=== PATIENT | female | born 1985 | race Caucasian/White ===

== ENCOUNTER 2018-07-09 11:58 | Emergency (ER) | payer OTHER ==
[2018-07-09] MEDS ORDERED: LIDOCAINE 5% (700 MG) TRANSDERMAL ADH..PATCH TP ONE (12:21)
[2018-07-09] MEDS ORDERED: IBUPROFEN 800 MG TABLET PO ONE (12:21)
--- NOTE | 2018-07-09 12:25 | ER Document Report ---
HPI - HPI Patient complains to provider of: Right upper back pain Time Seen by Provider: 07/09/18 12:08 Onset: Yesterday Onset/Duration: Gradual Quality of pain: Achy Pain Level: 4 Context: Patient presents complaining of right upper back pain that started yesterday. Patient states pain is worse with deep breath and coughing. Patient states movement of the right upper extremity also worsens her pain. Patient does acknowledge that she uses a heavy backpack and carries heavy loads while at work but denies any specific injury. Patient denies any fever nausea or vomiting or shortness of breath. Patient denies any recent travel or immobilization or surgeries. Patient denies any history of DVT or PE in the past. Associated Symptoms: Other - Right upper back pain. denies: Nonproductive cough , Productive cough Exacerbated by: Movement, Coughing, Deep breathing Relieved by: Remaining still Similar symptoms previously: No Recently seen / treated by doctor: No - ROS ROS below otherwise negative: Yes Systems Reviewed and Negative: Yes All other systems reviewed and negative - CONSTITUTIONAL Constitutional: DENIES: Fever, Chills - NEURO Neurology: DENIES: Headache, Weakness - RESPIRATORY Respiratory: REPORTS: Coughing. DENIES: Trouble Breathing - GASTROINTESTINAL Gastrointestinal: DENIES: Nausea, Patient vomiting - MUSCULOSKELETAL Musculoskeletal: REPORTS: Back Pain. DENIES: Extremity pain, Neck Pain - DERM Skin Color: Ashen Skin Problems: None Past Medical History - General Information source: Patient - Social History Smoking Status: Never Smoker Frequency of alcohol use: Occasional Drug Abuse: None Occupation: Teacher Lives with: Spouse/Significant other Family History: Reviewed & Not Pertinent - Medical History Medical History: Negative Past Surgical History: Reports: Other - Varicose vein Vertical Provider Document - CONSTITUTIONAL Agree With Documented VS: Yes Exam Limitations: No Limitations General Appearance: WD/WN, No Apparent Distress - INFECTION CONTROL TRAVEL OUTSIDE OF THE [place] IN LAST 30 DAYS: No - HEENT HEENT: Atraumatic, Normal ENT Exam, Normocephalic - NECK Neck: Normal Inspection, Supple. negative: Lymphadenopathy-Left, Lymphadenopathy-Right - RESPIRATORY Respiratory: Breath Sounds Normal, No Respiratory Distress. negative: Rales, Rhonchi, Wheezing - CARDIOVASCULAR Cardiovascular: Regular Rate, Regular Rhythm, No Murmur - BACK Back: Abnormal Inspection - Right upper thoracic back tenderness, pain is reproduced with deep inspiration. negative: CVA Tenderness-Right, CVA Tenderness-Left - MUSCULOSKELETAL/EXTREMETIES Musculoskeletal/Extremeties: MAEW, FROM, No Edema. negative: Edema - NEURO Level of Consciousness: Awake, Alert, Appropriate Motor/Sensory: No Motor Deficit - DERM Integumentary: Warm, Dry, No Rash Course - Re-evaluation Re-evalutation: 07/09/18 12:24 Patient presents with likely musculoskeletal thoracic back pain. Patient states that she had a friend whose mother of a pulmonary embolism after complaints of back pain. Patient is very concerned that she may have a blood clot. Patient denies any recent immobilization, long distance travel or surgeries. No previous history of DVT, no edema to lower extremities. Patient does not smoke or use oral contraceptives. Patient is not tachycardic nor hypoxic. Patient is well's criteria low risk as well as PERC negative. Patient concerned and would like to be evaluated for possible PE. 07/09/18 13:[address] Kerr regarding patient presentation diagnostic workup, no additional testing advised recommend symptomatic treatment at home. - Vital Signs Vital signs: Temp Pulse Resp BP Pulse Ox 98.7 F 84 16 128/72 H 98 07/09/18 12:04 07/09/18 12:04 07/09/18 12:04 07/09/18 12:04 07/09/18 12:04 - Laboratory Laboratory results interpreted by me: 07/09/18 13:13 Labs- Entire Visit 07/09/18 12:25 D-Dimer < 0.27 - Diagnostic Test Radiology reviewed: Reports reviewed Discharge - Discharge Clinical Impression: Upper back pain on right side Condition: Stable Disposition: HOME, SELF-CARE Instructions: Muscle Relaxers ([facility]), Upper Back Strain ([facility]), Warm Packs ([facility]) Additional Instructions: Return immediately for any new or worsening symptoms Followup with your primary care provider, call tomorrow to make a followup appointment Prescriptions: Cyclobenzaprine HCl [Flexeril 10 Mg Tablet] 10 mg PO TID #15 tablet Naproxen [Naprosyn 250 Nmg Tablet] 1 tab PO BID #14 tablet Referrals: [facility] [Provider Group] - Follow up as needed
--- NOTE | 2018-07-09 13:03 | RADIOLOGY REPORT (SQ) ---
EXAM DESCRIPTION: CHEST 2 VIEWS COMPLETED DATE/TIME: 07/09/2018 12:50 pm REASON FOR STUDY: r thoracic back pain COMPARISON: None. EXAM PARAMETERS: NUMBER OF VIEWS: two views TECHNIQUE: Digital Frontal and Lateral radiographic views of the chest acquired. RADIATION DOSE: NA LIMITATIONS: none FINDINGS: LUNGS AND PLEURA: No opacities, masses or pneumothorax. No pleural effusion. MEDIASTINUM AND HILAR STRUCTURES: No masses or contour abnormalities. HEART AND VASCULAR STRUCTURES: Heart normal size. No evidence for failure. BONES: Disc degenerative disease of the thoracic spine. HARDWARE: None in the chest. OTHER: No other significant finding. IMPRESSION: No acute abnormality of the lungs. Generally mild disc degenerative disease of the thor acic spine. No acute radiographic findings to explain right-sided back pain. TECHNICAL DOCUMENTATION: JOB ID: [id number] [employer]- All Rights Reserved Reading location - IP/workstation name: [email or web address]
[2018-07-09 13:51] VITALS: BP 130/72
== END 2018-07-09 13:35 | disposition home or self-care (01) ==
LOC: ER 11:58
DX: M54.89 Other dorsalgia (principal); R05 Cough
CPT/HCPCS: 36415; 71046; 85379; 99284

== ENCOUNTER 2019-07-14 19:37 | Emergency (ER) | payer OTHER ==
[2019-07-14] MEDS ORDERED: OXYCODONE HCL IR 5 MG TABLET PO ONE (20:13)
[2019-07-14] MEDS ORDERED: KETOROLAC TROMETHAMINE INJ/PF 30 MG/1 ML SDV IV ONE (20:13)
[2019-07-14] MEDS ORDERED: NORMAL SALINE 1000 ML 1,000 ML IV ONE (20:14)
--- NOTE | 2019-07-14 20:15 | ER Document Report ---
ED Medical Screen (RME) - General Chief Complaint: Low Back Pain Stated Complaint: BACK PAIN Time Seen by Provider: 07/14/19 20:08 TRAVEL OUTSIDE OF THE [place] IN LAST 30 DAYS: No - HPI Notes: 07/14/19 20:14 Patient is a 34-year-old female with no significant past medical history who presents complaining of severe bilateral low back pain that started this afternoon without precipitating event or injury. Patient states that she was started on an antibiotic yesterday for a urinary infection. She is having some left flank pain with this low back pain. Pain does not radiate. Patient states that she has not had a flareup of her back like this before. No other vaginal bleeding, odor, or discharge. No fever. I have treated and performed a rapid initial assessment of this patient. A comprehensive ED assessment and evaluation of the patient, analysis of test results and completion of medical decision making process will be conducted by additional ED providers. PHYSICAL EXAMINATION: GENERAL: Well-appearing, well-nourished and in no acute respiratory distress. Patient does appear uncomfortable and tearful leaning forward. Back: There is left CVA tenderness noted. She has mild tenderness palpation of her bilateral L spine but no midline tenderness to percussion or palpation. - Related Data Allergies/Adverse Reactions: shellfish derived Allergy (Verified 07/09/18 11:59) Home Medications: antibiotic for UTI, unk name Past Medical History - Social History Chew tobacco use (# tins/day): No Frequency of alcohol use: None Renal/ Medical History: Denies: Hx Peritoneal Dialysis Past Surgical History: Reports: Other - Varicose vein Physical Exam - Vital signs Vitals: Temp Pulse Resp BP Pulse Ox 98.0 F 112 H 22 H 151/104 H 95 07/14/19 19:45 07/14/19 19:45 07/14/19 19:45 07/14/19 19:45 07/14/19 19:45 Course - Vital Signs Vital signs: Temp Pulse Resp BP Pulse Ox 98.0 F 112 H 22 H 151/104 H 95 07/14/19 20:08 07/14/19 19:45 07/14/19 20:08 07/14/19 19:45 07/14/19 20:08
[2019-07-14 20:57] LABS: ABSOLUTE EOSINOPHILS # (AUTO) 0.1 10^3/uL (0.0-0.6); ABSOLUTE LYMPHOCYTES (AUTO) 1.8 10^3/uL (0.5-4.7); ABSOLUTE MONOCYTES (AUTO) 0.6 10^3/uL (0.1-1.4); ABSOLUTE NEUT (AUTO) 4.2 10^3/uL (1.7-8.2); BASOPHILS % (AUTO) 0.6 % (0-2); EOSINOPHILS % (AUTO) 1.3 % (0-6); HEMATOCRIT 39.2 % (36.0-47.0); HEMOGLOBIN 13.3 g/dL (12.0-15.5); MEAN CORPUSCULAR HEMOGLOBIN 28.7 pg (27.0-33.4); MEAN CORPUSCULAR VOLUME 84 fl (80-97); MONOCYTES % (AUTO) 8.5 % (3-13); PLATELET COUNT 302 10^3/uL (150-450); RED BLOOD COUNT 4.64 10^6/uL (3.72-5.28); RED CELL DISTRIBUTION WIDTH 13.3 % (11.5-14.0); SEGMENTED NEUTROPHILS % (AUTO) 62.6 % (42-78); TOTAL CELLS COUNTED % (AUTO) 100 %; WHITE BLOOD COUNT 6.7 10^3/uL (4.0-10.5)
[2019-07-14 21:16] LABS: ALBUMIN 4.4 g/dL (3.5-5.0); ALKALINE PHOSPHATASE 64 U/L (38-126); ANION GAP 13 (5-19); ASPARTATE AMINO TRANSFERASE 24 U/L (14-36); BILIRUBIN,DIRECT 0.1 mg/dL (0.0-0.4); BILIRUBIN,TOTAL 0.4 mg/dL (0.2-1.3); BLOOD UREA NITROGEN 13 mg/dL (7-20); CALCIUM 9.4 mg/dL (8.4-10.2); CARBON DIOXIDE 24 mmol/L (22-30); CHLORIDE 104 mmol/L (98-107); GLUCOSE 89 mg/dL (75-110); POTASSIUM 3.8 mmol/L (3.6-5.0); TOTAL PROTEIN 7.6 g/dL (6.3-8.2)
[2019-07-14 21:23] LABS: APPEARANCE,URINE CLEAR; BILIRUBIN,URINE NEGATIVE (NEGATIVE); COLOR,URINE YELLOW; GLUCOSE, URINE NEGATIVE (NEGATIVE); KETONES,URINE TRACE mg/dL (NEGATIVE); LEUKOCYTE ESTERASE,URINE NEGATIVE (NEGATIVE); NITRITE,URINE NEGATIVE (NEGATIVE); PROTEIN,URINE NEGATIVE (NEGATIVE); URINE SPECIFIC GRAVITY 1.017; UROBILINOGEN,URINE NEGATIVE mg/dL (<2.0)
[2019-07-15] MEDS ORDERED: CYCLOBENZAPRINE HCL 10 MG TABLET PO ONE (01:25)
--- NOTE | 2019-07-15 01:51 | ER Document Report ---
ED General - General Chief Complaint: Low Back Pain Stated Complaint: BACK PAIN Time Seen by Provider: 07/14/19 20:08 Notes: 34-year-old female presents with bilateral lower back pain that started intermittently throughout the day. Patient states it has progressively gotten worse. Patient was recently diagnosed with UTI yesterday and started on antibiotics. Patient denies any injury. Patient denies difficulty with urinating or defecating. Patient denies saddle anesthesia. Patient states that the area feels tight and like she needs to "stretch it out." TRAVEL OUTSIDE OF THE [place] IN LAST 30 DAYS: No - Related Data Allergies/Adverse Reactions: shellfish derived Allergy (Verified 07/09/18 11:59) Home Medications: antibiotic for UTI, unk name Past Medical History - Social History Smoking Status: Never Smoker Chew tobacco use (# tins/day): No Frequency of alcohol use: None Family History: Reviewed & Not Pertinent Patient has suicidal ideation: No Patient has homicidal ideation: No Renal/ Medical History: Denies: Hx Peritoneal Dialysis Past Surgical History: Reports: Other - Varicose vein Review of Systems - Review of Systems Notes: Constitutional: Negative for fever. HENT: Negative for sore throat. Eyes: Negative for visual changes. Cardiovascular: Negative for chest pain. Respiratory: Negative for shortness of breath. Gastrointestinal: Negative for abdominal pain, vomiting or diarrhea. Genitourinary: Negative for dysuria. Musculoskeletal: Positive for back pain. Skin: Negative for rash. Neurological: Negative for headaches, weakness or numbness. 10 point ROS negative except as marked above and in HPI. Physical Exam - Vital signs Vitals: Temp Pulse Resp BP Pulse Ox 98.0 F 112 H 22 H 151/104 H 95 07/14/19 19:45 07/14/19 19:45 07/14/19 19:45 07/14/19 19:45 07/14/19 19:45 - Notes Notes: GENERAL: Well-appearing, well-nourished and in no acute distress. HEAD: Atraumatic, normocephalic. EYES: Pupils equal round and reactive to light, extraocular movements intact, sclera anicteric, conjunctiva are normal. ENT: TMs normal, nares patent, oropharynx clear without exudates. Moist mucous membranes. NECK: Normal range of motion, supple without lymphadenopathy or JVD. LUNGS: Breath sounds clear to auscultation bilaterally and equal. No wheezes rales or rhonchi. HEART: Regular rate and rhythm without murmurs, rubs or gallops. ABDOMEN: Soft, nontender. No guarding, no rebound. No masses appreciated. EXTREMITIES: Normal range of motion, no pitting or edema. No clubbing or cyanosis. NEUROLOGICAL: Cranial nerves II through XII grossly intact. Normal speech, normal gait. Back: No spinal tenderness. Tenderness noted to left lumbar paraspinal muscles. PSYCH: Normal mood, normal affect. SKIN: Warm, Dry, normal turgor, no rashes or lesions noted. Course - Re-evaluation Re-evalutation: 07/15/19 34-year-old female presents with low back pain. No spinal tenderness. Patient has tenderness to the left paraspinal muscles. Patient states position of comfort is curled up on her side. Patient is nontoxic, well-appearing. No CVA tenderness. Abdomen soft nontender. Lab work is unremarkable. UA does not show active infection. Patient was originally given oxycodone out in triage with improvement in pain. However patient states pain is started to come back. Discussed imaging with patient and will try a muscle relaxer prior to pursuing further imaging. Also offered steroid shot however patient refused. 07/15/19 04:01 Pt is feeling much better after toradol and flexeril. Further imaging not required based on physical and improvement in pain. Return precautions given. Pt given referral to PCP. All questions/concerns addressed prior to discharge. - Vital Signs Vital signs: Temp Pulse Resp BP Pulse Ox 98.4 F 62 20 114/52 L 99 07/15/19 01:04 07/15/19 01:04 07/15/19 01:04 07/15/19 01:04 07/15/19 01:04 - Laboratory Result Diagrams: 07/14/19 20:28 07/14/19 20:28 Laboratory results interpreted by me: 07/14/19 07/14/19 20:28 20:28 Est GFR (MDRD) Non-Af 53 L Urine Ketones TRACE H Urine Ascorbic Acid 40 H Discharge - Discharge Clinical Impression: Muscle spasm Lumbar strain Qualifiers: Encounter type: initial encounter Qualified Code(s): S39.012A - Strain of muscle, fascia and tendon of lower back, initial encounter Condition: Stable Disposition: HOME, SELF-CARE Instructions: Low Back Pain ([facility]), Muscle Strain ([facility]), Warm Packs ([facility]) Additional Instructions: Your work-up today was reassuring. Please take medications as prescribed. Do not drink or drive while taking Flexeril as it may make you drowsy. Please use heat as discussed. Please return to ER for any worsening symptoms, including worsening back pain, difficulty with urinating/defecating, numbness to your private area, further injury, inability to walk, or any other symptoms that are concerning to you. Prescriptions: Cyclobenzaprine HCl [Flexeril 10 mg Tablet] 10 mg PO TIDP PRN #15 tab PRN Reason: Ibuprofen [Motrin 800 mg Tablet] 800 mg PO Q8H PRN #30 tab PRN Reason: Referrals: KATHI SAEED MD [ACTIVE STAFF] - Follow up in 3-5 days
[2019-07-15] MEDS ORDERED: KETOROLAC TROMETHAMINE 60 MG/2 ML SDV IM ONE (02:28)
[2019-07-15 04:53] VITALS: BP 110/70
== END 2019-07-15 05:00 | disposition home or self-care (01) ==
LOC: ER 19:37
DX: S39.012A Strain of muscle, fascia and tendon of lower back, initial encounter (principal); M62.830 Muscle spasm of back; X58.XXXA Exposure to other specified factors, initial encounter
CPT/HCPCS: 99283; 96372; 36415; 87086; 85025; 80053; 81001; J1885